=== PATIENT | female | born 1935 | race Caucasian/White ===

== ENCOUNTER 2025-01-07 14:23 | Emergency (ER) | payer MEDICARE, MEDICAID ==
[~2025-01-07] VITALS: Ht 152.4 cm; Wt 63.6 kg
[~2025-01-07 14:23] MED LIST: [UNRECOGNIZED DRUG - OTHER] PO; insulin SQ; thyroid PO
[2025-01-07 14:35] VITALS: TEMP 98
[2025-01-07] MEDS: TraMADol HCL 50 MG TABLET PO ONE (15:57)
[2025-01-07] MEDS ORDERED: TRAM50TA5 PO (16:52)
[2025-01-07 16:58] VITALS: BP 145/79; PULSE 77; RESP 18; O2SAT 99
== END 2025-01-07 17:01 | disposition home or self-care (01) ==
LOC: EMS 14:23
DX: S42.402A Unspecified fracture of lower end of left humerus, initial encounter for closed fracture (principal); F03.90 Unspecified dementia, unspecified severity, without behavioral disturbance, psychotic disturbance, mood disturbance, and anxiety; E11.9 Type 2 diabetes mellitus without complications; I10 Essential (primary) hypertension; W01.0XXA Fall on same level from slipping, tripping and stumbling without subsequent striking against object, initial encounter; Y93.01 Activity, walking, marching and hiking; Y92.89 Other specified places as the place of occurrence of the external cause; Y99.8 Other external cause status
CPT/HCPCS: 99283